=== PATIENT | female | born 1995 | race Caucasian/White ===

== ENCOUNTER 2019-09-14 17:25 | Emergency (ER) | payer OTHER, SELFPAY ==
[2019-09-14 17:35] VITALS: BP 120/73; PULSE 74; RESP 16; TEMP 37.1; O2SAT 97
--- NOTE | 2019-09-14 17:42 | ED.GENADULT ---
HPI - General Adult General Chief complaint: Skin/Abscess/Foreign Body Stated complaint: swelling in hands/finger, Ankle/feet swelling Time Seen by Provider: 09/14/19 17:42 Source: patient Mode of arrival: ambulatory Limitations: no limitations History of Present Illness HPI narrative: 24-year-old woman comes in today complaining of intermittent swelling of her hands and feet over the last month or 2. Patient states that they are often sore. Her mother has told her that she has had ordered looking skin at times. She denies shortness of breath, chest pain, cough, history of heart disease, nausea, vomiting or past hepatic or kidney disease. She has a remote history of IV drug use. Patient states she has also had right thumb pain and swelling that started today. She states that she often bites her fingernails. She put her finger in some hydrogen peroxide and her skin turned white. She denies any fever, red streaks or chills. Onset (ago): month(s) (1-2) Location: right and upper extremity Radiation: non-radiation Severity: moderate Quality: sharp ( And throbbing) Pain Consistency: constant Relieving factors: none Exacerbating factors: other ( palpation) Related Data Allergies Allergy/AdvReac Type Severity Reaction Status Date / Time No Known Allergies Allergy Unverified 07/19/18 18:49 Review of Systems Constitutional: Constitutional: Denies chills, Denies fatigue, Denies fever(s) and Denies weakness Eyes: Eyes: Denies change in vision and Denies photophobia ENT: Denies dysphagia, Denies nasal congestion and Denies sore throat Cardiovascular: Cardiovascular: Denies chest pain and Denies radiating jaw, neck or arm pain Respiratory: Respiratory: Denies cough, Denies dyspnea and Denies wheezing Gastrointestinal: Gastrointestinal: Denies abdominal pain, Denies diarrhea, Denies nausea and Denies vomiting Genitourinary: Genitourinary: Denies nocturia and Denies dysuria Musculoskeletal: Musculoskeletal: Denies back pain, Denies arthralgias and Denies joint swelling Integumentary/Breasts: Skin/Breast: Denies pruritus, Denies erythema and Denies rash Neurologic: Denies vertigo, Denies dizziness and Denies syncope Psychiatric: Psychiatric: Denies anxiety and Denies depression Endocrine: Endocrine: Denies polydipsia and Denies polyuria Comments: no heat or cold intolerance Hematologic/Lymphatic: Hematologic/Lymphatic: Denies easy bleeding and Denies easy bruising Allergic/Immunologic: Allergic/Immunologic: Denies lip swelling and Denies wheezing PMFSH Past Medical History Medical History (Updated 09/14/19 @ 18:36 by Malik Copeland MD) Hypertension Surgical History Surgical History (Updated 09/14/19 @ 17:56 by Malik Copeland MD) Hx of neck surgery S/P tonsillectomy and adenoidectomy Social History Social History (Updated 09/14/19 @ 17:56 by Malik Copeland MD) Smoking status: Current every day smoker Substance use: former Substance use type: IV drugs Living arrangements: with family Gender identity (if verbalized by the patient): Male Exam Const: General: healthy appearing and alert Nutritional Appearance: well nourished Orientation/consciousness: patient oriented x3 Other: mild acute distress HENMT: Ears: external ears normal, TM's normal bilaterally and EAC's normal Mouth: Yes Normal oral and palatal mucosa present and Yes dry mucous membranes Throat: posterior oropharynx normal and uvula midline Eyes: Conjunctivae: conjunctivae normal Pupils: Equal, round and reactive pupils present EOM: EOMs intact bilaterally Other: no icterus Neck: Neck: normal visual inspection and no lymphadenopathy Resp: Effort & Inspection: normal respiratory effort and not labored Auscultation: clear to auscultation bilaterally, rales, rhonchi and wheezes Cardio: Rate: regular rate Rhythm: regular rhythm Heart sounds: no murmurs GI: GI Palp: Yes Soft to palpation, No Tenderness to palpa
[2019-09-14 17:56] VITALS: BP 120/73; PULSE 74; RESP 16; TEMP 37.1; O2SAT 94
[2019-09-14 18:04] LABS: Basophils Absolute Auto 0.03 K/mm3 (0.00-0.10); Basophils Percent Auto 0.4 % (0.0-1.0); Eosinophils Absolute Auto 0.23 K/mm3 (0.02-0.50); Eosinophils Percent Auto 2.8 % (1.0-6.0); Hematocrit 40.6 % (35.0-49.0); Hemoglobin 13.4 g/dL (12.0-15.0); Immature Granulocyte Absolute 0.01 K/mm3 (0.00-0.00); Immature Granulocyte Percent A 0.1 % (0.0-0.0); Lymphocytes Absolute Auto 2.14 K/mm3 (1.10-4.50); Lymphocytes Percent Auto 25.9 % (18.0-42.0); Mean Corpuscular Hemoglobin 31.6 pg (27.0-31.0); Mean Corpuscular Volume 95.8 fL (78.0-102.0); Monocytes Percent Auto 7.3 % (2.0-11.0); Neutrophils Absolute Auto 5.3 K/mm3 (1.7-7.2); Neutrophils Percent Auto 63.5 % (50.0-70.0); Platelet Count Result 257 K/mm3 (150-420); Red Blood Count 4.24 M/mm3 (4.20-5.40); Red Cell Distribution Width 12.2 % (11.6-14.4); White Blood Count 8.3 K/mm3 (4.8-10.8)
[2019-09-14 18:20] LABS: Add Urine Microscopic? YES; Appearance Urine Clear (Clear); Bilirubin Urine Negative (Negative); Blood Urine Negative (Negative); Color Urine Yellow (Yellow); Glucose Urine UA Negative (Negative); Ketones Urine Negative (Negative); Leukocyte Esterase Ur 1+ (Negative); Nitrate Urine Negative (Negative); Protein Urine Negative (Negative); Specific Grav Ur 1.025 (1.010-1.020)
[2019-09-14 18:25] LABS: Bacteria Urine 1+ /hpf; Squamous Epithelial Cell Urine Moderate /hpf (Few); Urine Pregnancy Test Negative
[2019-09-14 18:26] LABS: Pregnancy On Board Control POS; Specific Gravity Ur 1.025 (1.010-1.035)
[2019-09-14 18:30] LABS: Alanine Aminotransferase 32 U/L (14-59); Albumin Level 3.5 g/dL (3.4-5.0); Alkaline Phosphatase 81 U/L (46-116); Anion Gap 11.7 mmol/L (7-16); Aspartate Amino Transferase 24 U/L (15-37); Bilirubin,Total 0.4 mg/dL (0.00-1.00); Blood Urea Nitrogen 13 mg/dL (7-18); Calcium 8.9 mg/dL (8.5-10.1); Carbon Dioxide 30 mmol/L (21-32); Chloride 102 mmol/L (98-108); Estimated CRCL calculation 98 ml/min; Estimated Glomerular Filt Rate > 60; GGT 11 U/L (5-55); Glucose 69 mg/dL (70-99); Osmolality Calculated 288 mOsm/kg (285-295); Potassium 3.7 mmol/L (3.5-5.1); Sodium 140 mmol/L (136-145); Thyroid Stimulating Hormone Reflex 1.28 u/IU/mL (0.36-3.74); Total Protein 6.8 g/dL (6.4-8.2)
[2019-09-14 18:39] VITALS: BP 120/80; PULSE 80; RESP 20; O2SAT 100
== END 2019-09-14 18:42 | disposition home or self-care (01) ==
PROVIDERS: Emergency Provider Emergency Medicine
DX: L03.011 Cellulitis of right finger (principal); N39.0 Urinary tract infection, site not specified; R60.9 Edema, unspecified
CPT/HCPCS: 36415; 80053; 81001; 81025; 82977; 84443; 85025; 99283

== ENCOUNTER 2019-09-18 14:42 | Emergency (ER) | payer OTHER, SELFPAY ==
[2019-09-18 16:13] VITALS: BP 134/91; PULSE 108; RESP 18; TEMP 36.5; O2SAT 98
--- NOTE | 2019-09-18 16:26 | ED.UPPEXIN ---
HPI - Extremity Injury (Upper) General Chief Complaint: Extremity Injury, Upper Stated Complaint: rt thumb injury Source: patient Mode of arrival: ambulatory Limitations: no limitations History of Present Illness HPI narrative: This is a 24-year-old female presents with right thumb swelling redness and pain started approximately more than a week ago was seen in the emergency department approximately 5 to 6 days ago started on antibiotics and currently there is some increasing inflammation swelling redness of her right thumb no tracking of the redness there is no fever or chills no known injury to the right thumb. complaint: injury to: right and finger Onset (ago): day(s) Other injuries: none Handedness: right Place: home Severity: moderate Severity scale (1-10): 7 Relieving factors: medication Related Data Allergies Allergy/AdvReac Type Severity Reaction Status Date / Time No Known Allergies Allergy Unverified 07/19/18 18:49 Review of Systems Review of Systems: All systems reviewed & are unremarkable except as noted in HPI and below PMFSH Past Medical History Medical History Hypertension Surgical History Surgical History Hx of neck surgery S/P tonsillectomy and adenoidectomy Social History Social History Smoking status: Current every day smoker Substance use: former Substance use type: IV drugs Gender identity (if verbalized by the patient): Male Exam Const: General: no acute distress and alert Nutritional Appearance: well nourished Orientation/consciousness: patient oriented x3 HENMT: Head: normal to inspection Eyes: Conjunctivae: conjunctivae normal Pupils: Equal, round and reactive pupils present Neck: Neck: normal visual inspection Lymphatic: no lymphadenopathy noted Chest: Chest palpation & inspection: normal inspection of the chest Resp: Effort & Inspection: normal respiratory effort Auscultation: clear to auscultation bilaterally Cardio: Rate: regular rate Rhythm: regular rhythm GI: GI Palp: Yes Soft to palpation Skin: General skin exam: normal color Rashes: no rashes Wounds: wounds noted ( Swollen right thumb with tenderness around the nail bed with redness.) Course Vital Signs Vital signs: Vital Signs Temperature 36.5 C 09/18/19 16:13 Pulse Rate 108 H 09/18/19 16:13 Respiratory Rate 18 09/18/19 16:13 Blood Pressure 134/91 H 09/18/19 16:13 Pulse Oximetry 98 09/18/19 16:13 Temperature 36.5 C 09/18/19 16:13 Pulse Rate 108 H 09/18/19 16:13 Respiratory Rate 18 09/18/19 16:13 Blood Pressure 134/91 H 09/18/19 16:13 Pulse Oximetry 98 09/18/19 16:13 Critical Care Time Critical Care Time Critical Care Time: No Discharge Plan Discharge Clinical Impression: Paronychia Cellulitis Qualifiers: Site of cellulitis: extremity Site of cellulitis of extremity: finger Laterality: right Qualified Code(s): L03.011 - Cellulitis of right finger Patient Disposition: Home, Self-Care Condition: Stable Instructions: Antibiotic Form Additional Instructions: Follow-up with primary care physician within 1 week for further evaluation and treatment. Take medicine as prescribed. Prescriptions: New amoxicillin-pot clavulanate [Augmentin] 875-125 mg tablet 1 tablet PO Q12H Qty: 20 RF: 0 naproxen 500 mg tablet 500 mg PO BID Qty: 14 RF: 0 No Action sulfamethoxazole-trimethoprim [Bactrim DS] 800-160 mg tablet 1 tablet PO Q12H Qty: 7 RF: 0 acetaminophen-codeine [Tylenol-Codeine #3] 300-30 mg tablet 1 tablet PO Q6H PRN (Reason: pain) Qty: 10 RF: 0 Follow-up/Referrals: UNKNOWN,DOCTOR [Primary Care Provider] - Time of Disposition: 16:30
[2019-09-18] MEDS: KETOROLAC (*BKC) 60 MG/2 ML VIAL IM (16:33)
[2019-09-18 16:43] VITALS: BP 135/95; PULSE 101; RESP 18; O2SAT 99
== END 2019-09-18 16:49 | disposition home or self-care (01) ==
PROVIDERS: Emergency Provider Emergency Medicine
DX: L03.011 Cellulitis of right finger (principal)
CPT/HCPCS: 96372; 99283; J1885

== ENCOUNTER 2020-10-20 00:20 | Emergency (ER) | payer OTHER, SELFPAY ==
[2020-10-20 00:20] VITALS: PULSE 80; RESP 20; TEMP 36.6; O2SAT 100
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
[2020-10-20 00:57] LABS: Basophils Absolute Auto 0.06 K/mm3 (0.00-0.10); Basophils Percent Auto 0.4 % (0.0-1.0); Eosinophils Absolute Auto 0.09 K/mm3 (0.02-0.50); Eosinophils Percent Auto 0.7 % (1.0-6.0); Hematocrit 36.5 % (35.0-49.0); Hemoglobin 12.6 g/dL (12.0-15.0); Immature Granulocyte Absolute 0.04 K/mm3 (0.00-0.00); Immature Granulocyte Percent A 0.3 % (0.0-0.0); Lymphocytes Absolute Auto 2.73 K/mm3 (1.10-4.50); Lymphocytes Percent Auto 19.9 % (18.0-42.0); Mean Corpuscular HGB Conc 34.5 g/dL (32.0-36.0); Mean Corpuscular Hemoglobin 32.1 pg (27.0-31.0); Mean Corpuscular Volume 92.9 fL (78.0-102.0); Mean Platelet Volume 9.9 fl (9.2-11.8); Monocytes Absolute Auto 1.27 K/mm3 (0.10-0.90); Monocytes Percent Auto 9.3 % (2.0-11.0); Neutrophils Absolute Auto 9.5 K/mm3 (1.7-7.2); Neutrophils Percent Auto 69.4 % (50.0-70.0); Platelet Count Result 335 K/mm3 (150-420); Red Blood Count 3.93 M/mm3 (4.20-5.40); Red Cell Distribution Width 12.8 % (11.6-14.4); White Blood Count 13.7 K/mm3 (4.8-10.8)
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
[2020-10-20 00:59] LABS: Add Urine Microscopic? YES; Bilirubin Urine Negative (Negative); Blood Urine Negative (Negative); Color Urine Yellow (Yellow); Glucose Urine UA Negative (Negative); Ketones Urine Negative (Negative); Leukocyte Esterase Ur Negative LEU/UL (Negative); Nitrate Urine Negative (Negative); Protein Urine Trace (Negative); Specific Grav Ur >= 1.030 (1.010-1.020)
[2020-10-20 01:02] LABS: Pregnancy On Board Control Positive; Urine Pregnancy Test Negative
[2020-10-20 01:03] LABS: Bacteria Urine 1+ /hpf; Mucus Urine Moderate /lpf; RBC Urine 0-2 /hpf (0-2); Squamous Epithelial Cell Urine Few /hpf (Few)
[2020-10-20 01:04] LABS: Appearance Urine Cloudy (Clear)
[2020-10-20 01:08] LABS: Salicylate 6.2 mg/dL (2.8-20.0)
[2020-10-20 01:09] LABS: Amphetamine Screen Urine Positive (Negative); Barbiturate Screen Urine Negative (Negative); Benzodiazepines Screen Urine Negative (Negative); Cannabinoid Screen Urine Positive (Negative); Cocaine Screen Urine Negative (Negative); Methadone Screen Urine Negative (Negative); Opiate Screen Urine Negative (Negative); Phencyclidine Screen Urine Negative (Negative)
[2020-10-20 01:09] LABS: Acetaminophen < 2 ug/mL (10-30); Ethanol < 3 mg/dL (0-6)
[2020-10-20 01:10] VITALS: BP 120/94; PULSE 95; RESP 20; O2SAT 99
[2020-10-20 01:24] LABS: Alanine Aminotransferase 40 U/L (14-59); Albumin Level 3.9 g/dL (3.4-5.0); Alkaline Phosphatase 86 U/L (46-116); Anion Gap 14 mmol/L (8-16); Aspartate Amino Transferase 32 U/L (15-37); Bilirubin,Total 0.5 mg/dL (0.00-1.00); Blood Urea Nitrogen 13 mg/dL (7-18); Calcium 9.1 mg/dL (8.5-10.1); Carbon Dioxide 23 mmol/L (21-32); Chloride 104 mmol/L (98-108); Estimated CRCL calculation 64 ml/min; Estimated Glomerular Filt Rate > 60; Glucose 111 mg/dL (70-99); Osmolality Calculated 293 mOsm/kg (285-295); Potassium 3.4 mmol/L (3.5-5.1); Sodium 141 mmol/L (136-145); Thyroid Stimulating Hormone 1.27 uIU/mL (0.36-3.74); Total Protein 7.5 g/dL (6.4-8.2)
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
--- NOTE | 2020-10-20 01:50 | PC.NURSE ---
Pt. is sitting upright in bed c x2 soft restraints on upper limbs, staring out window and talking to self. Pt. not trying to fight restraints at this time.
[2020-10-20 02:18] LABS: SARS-CoV-2 RNA PCR Negative (Negative)
[2020-10-20] MEDS: NICOTINE (*PBKC) 14 MG PATCH 1 PATCH TRANSDERM (04:03)
--- NOTE | 2020-10-20 04:20 | PC.NURSE ---
Pt. is agitated and hostile c staff, wanting to sign herself out and stating she isn't going to a mental hospital. ERP in to speak c pt. and pt more agitated. Explained to pt. that if she won't cooperate the other restraint will go back on. Pts. father at bedside, sitter by door. Pt. encouraged to lie down and rest.
--- NOTE | 2020-10-20 04:39 | PC.NURSE ---
Pt is more agitated and unable to be redirected threatning that she is going to kill all of us. PD called for assistance so pt. can be placed back in restraint.
--- NOTE | 2020-10-20 04:47 | PC.NURSE ---
[place] [employer] officer here, dad asked to leave room due to pt. argumentative and more verbally abusive c him in room. Pt. then placed back in 2nd wrist restraint c help of officer. Pt. more cooperative c PD here.
[2020-10-20] MEDS: LORazepam INJ (*CRX) 2 MG/ML VIAL IM (05:16)
--- NOTE | 2020-10-20 05:17 | PC.NURSE ---
This RN and tech in room c pt. Pt. assisted to BSC and restraints left off at this time. Pt. cleaned herself c wipes and deodorant given. Pt. sitting bedside p using commode and sipping on soda. Pt. allowed this RN to give her an injection that she wanted to help calm her nerves.
[2020-10-20] MEDS: POTASSIUM CHLORIDE 20 MEQ TABLET 40 MEQ PO (05:24)
--- NOTE | 2020-10-20 06:13 | PC.NURSE ---
Pt. moved to ER hold psychiatric room c camera on for close obs and sitter at bedside. Pt. informed that since she can't/won't stay in room and is attempting to leave that she will be placed in a secluded room under constant surveillance. Pt having vivid hallucinations and talking to her mother who isn't in room. Camera on in room, pt sitting bedside and looking out door window, talking to self.
--- NOTE | 2020-10-20 07:10 | PC.NURSE ---
Report given to Celeste Bustos. Pt. still in room, standing at door looking out and won't stay in bed. Pt. continues to be watched on monitor and is under close observation.
[2020-10-20] MEDS: HALOPERIDOL LACTATE 5 MG/ML VIAL IM (07:23)
--- NOTE | 2020-10-20 07:33 | PC.NURSE ---
REPORT RECEIVED FROM PREVIOUS NURSE STATING PATIENT HAS NOT BEEN TO SLEEP AND IS SPEAKING OF [facility] TRYING TO GET HER VERBAL ORDER RECEIVED FOR ANTI-PSYCHOTIC - [facility] WILL NOT TAKE PATIENT DUE TO HER SEVERITY OF PSYCHOSIS SITTER AT DOOR, NO BELONGINGS IN ROOM. PT IS CALM AND COOPERATIVE AT THIS TIME
[2020-10-20 09:46] VITALS: BP 109/63; PULSE 68; RESP 14; TEMP 36.4; O2SAT 100
--- NOTE | 2020-10-20 09:56 | PC.NURSE ---
PT IS MOVED TO ROOM 206 FOR ERHOLD REQUESTED BY DR JAZIEL MONIQUE FROM [facility] STATES NO BEDS AVAILABLE AT THIS TIME - PT IS SLEEPING BUT EASILY AROUSABLE , DENIES ANY REQUESTS AT THIS TIME
--- NOTE | 2020-10-20 10:10 | PC.NURSE ---
1000 here from er as a hold. arouses with name being called. will not answer questions, just look blankly at staff. lying quietly at this time. sitter at bedside.
[2020-10-20 10:16] VITALS: BP 130/86; PULSE 80; RESP 18; O2SAT 98
--- NOTE | 2020-10-20 10:45 | PC.NURSE ---
cont to sleep quietly at this time.
--- NOTE | 2020-10-20 14:03 | PC.NURSE ---
cont to sleep. rolls over once in a while. barber norton
--- NOTE | 2020-10-20 17:00 | PC.NURSE ---
cont to sleep. dries to with drawl from touch and name called. eyes flicker open briefly and shut. groans and tries to bury head if you cont to stimuli patient. vs stable. cont to monitor. barber norton
[2020-10-20 17:03] VITALS: BP 128/88; PULSE 80; RESP 18; TEMP 37.1; O2SAT 97
--- NOTE | 2020-10-20 18:39 | PC.NURSE ---
cont to sleep. pulls away and buries head if attempted to wake.
--- NOTE | 2020-10-20 19:24 | PC.NURSE ---
Patient up to toilet independently. Had supper tray. Ate 25%. Difficult to get to answer questions. Sleeping again.
--- NOTE | 2020-10-20 23:59 | PC.NURSE ---
Patient resting. Alert and oriented x3. No aggression or self harm threats or attempts. Fluids provided.
[2020-10-21 00:03] VITALS: BP 144/84; PULSE 86; RESP 14; TEMP 36.4; O2SAT 99
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
[2020-10-21 08:05] VITALS: BP 130/94; PULSE 76; RESP 20; TEMP 36.6; O2SAT 98
--- NOTE | 2020-10-21 08:05 | PC.NURSE ---
sleeping this am. quiet. will only answer yes/no. i am thirsty. up ad patsy in room to br.
--- NOTE | 2020-10-21 09:48 | PC.NURSE ---
[facility] CALLED FOR RE-EVALUATION
[2020-10-21] MEDS: NICOTINE (*PBKC) 14 MG PATCH 1 PATCH TRANSDERM (10:10)
--- NOTE | 2020-10-21 10:16 | PC.NURSE ---
KAYDEN WITH [facility] CALLS BACK AND DECLINES REQUEST TO RE-EVALUATE PATIENT ERP FEELS THAT SHE IS NO LONGER A RISK SINCE SHE IS SOBER. K[facility] ALSO STATES THAT THERE NEEDS TO BE NEW FORMS AND CERTIFICATES FILLED OUT THAT WE CAN GOOGLE AND PRINT OFF. I INFORMED JORGE THERESA HULL INSPECTOR THAT ERP AGAIN REQUESTS PT BE RE-EVALUATED AND WE ARE NOT COMFORTABLE WITH FILLING OUT AN INVOLUNTARY CERTIFICATE FOUND ON GOOGLE AGAINST DR MILLAN ADVICE.
--- NOTE | 2020-10-21 10:55 | PC.NURSE ---
family at bedside. up ad patsy in room. barber norton
--- NOTE | 2020-10-21 11:05 | PC.NURSE ---
ERP RETURNS TO ER AFTER ROUNDS, HAS DECLARED PATIENT NOT TO BE HOMICIDAL OR SUICIDAL AND SO NO LONGER NEEDS A SITTER AT THE BEDSIDE. [facility] SENIOR FIELD ENGINEER STATES A SENIOR FIELD ENGINEER AND FAMILY MEMBER WILL BE UP TO SIGN NEW CERTIFICATES AND POSSIBLY RE-EVALUATE.
--- NOTE | 2020-10-21 11:05 | PM.EVENT ---
Event Note Event Note Event Note: saw patient earlier this morning and the patient was evaluated and she did not remember the events proceeding to her being sent to the hospital and subsequent ER hold, after talking to the patient she is awake alert and she conveyed to me that she is not suicidal and currently not homicidal and did not remember the events leading to her ER visit. Apparently her father is here visiting and wants to sign her out him take her to [facility] to be evaluated. Mental health was here the previous night and she is currently involuntary and there are no beds for violent homicidal behavior. Called mental health to come and re-evaluate because the patient was on methamphetamines and currently she is lucid awake alert and wanted mental health come and re-evaluate her current status.
--- NOTE | 2020-10-21 11:05 | PC.NURSE ---
erp awareof father wanting her to be dc to him, so he can take her personally to [facility]. phone call to mental health after hours. waiting for call back. barber andre
--- NOTE | 2020-10-21 11:33 | PC.NURSE ---
1115 talked with makeda at [facility]. explained the father is wanting her dc and for him to take her to [facility]. makeda claims he thinks she still needs to be committed but if you guys think she is not then we can dc her. explained that we go on their recommendations and that this nurse feels she needs to be re-evaluated. makeda claims he has spent the morning on phone with father. claims they were to meet at local [facility] or his house to sign papers and decide what care is needed. claims the father wanted to come here to see her first and has called him talked that he was willing to take her to [facility]. asked mental health worker when he was coming, he claims he is not since the father was already there and he needed a private area to discuss care. explained we have several private areas he can go with father to talk. at this makeda claims he is on his way. family aware. patient rests quietly in bed. barber norton
--- NOTE | 2020-10-21 12:17 | PC.NURSE ---
1205 erp aware of makeda's request for new labs to be repeated. makeda claims there is no way to her into [facility] as a female due to no beds yesterday or today. and that makeda is on his way. barber norton 1210 patient rests with eyes closed. father remains at bedside. barber norton 1220 father claims makeda is on the outside of building and he will go out and meet with him. lunch served to patient. sits up in bed and eats. voices no c/o. barber norton
--- NOTE | 2020-10-21 13:03 | PC.NURSE ---
makeda talked with parents. has a signed petition for involuntary admission paper, that he claims is good for 72 hours. ate lunch and now lays down.
--- NOTE | 2020-10-21 13:43 | PC.NURSE ---
[facility] calls and claims they have a bed and need to talk to her personally. phone call transferred to her and she now sits in bed rocking and talking on phone.
[2020-10-21] MEDS: LORazepam (*CRX) 1 MG TABLET PO (13:55)
--- NOTE | 2020-10-21 14:04 | PC.NURSE ---
talks with marques for short amount of time. c/o feeling nervous and needs something for nerves NOW. up ad patsy in room. nibbles on lunch. does not want it taken away.does not want to talk. picks and chooses when to answer you. barber norton
--- NOTE | 2020-10-21 14:59 | PC.NURSE ---
LISA, MENTAL HEALTH SPD MANAGER AT [facility] [place] CALLS THIS FACILITY BACK AFTER SPEAKING TO PSYCHIATRIST. DR JUAREZ STATES THAT THIS PATIENT DOES NOT QUALIFY FOR MENTAL HEALTH EVALUATION AT A MENTAL HEALTH INPATIENT FACILITY THIS IS METH-AMPHETAMINE INDUCED BEHAVIOR. DR MILLAN AWARE OF CHANGE OF STATUS.
--- NOTE | 2020-10-21 15:02 | PC.NURSE ---
[address] [facility] psychiatric coordinator tito contacted. update provided on patients lowered acuity and improved condition. tito states there are beds available and requested updated chart be faxed to her so that the patient can be considered to psychiatric treatment at [facility] facility. chart faxed. awaiting call back.
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
[2020-10-21 15:30] VITALS: BP 148/112; PULSE 94; RESP 18; O2SAT 97
--- NOTE | 2020-10-21 15:31 | PC.NURSE ---
1525 up ad patsy in room. er nurse here and talks with patient and goes over dc instructions. vocalizes an understanding to her. dresses self. wants to call father but attempted to explain i needed to call out because phones in pt room only call local and will transfer it to her. Does not to give phone number. leaves with er nurse at this time.
== END 2020-10-21 15:30 | disposition home or self-care (01) ==
LOC: CHSED 07:23 → CHS2ND 09:49
PROVIDERS: Emergency Medicine; Emergency Provider Emergency Medicine
DX: F23 Brief psychotic disorder (principal); R45.1 Restlessness and agitation; F15.90 Other stimulant use, unspecified, uncomplicated; Z20.822 Contact with and (suspected) exposure to COVID-19
CPT/HCPCS: 36415; 80053; 80307; 81001; 81025; 84443; 85025; 96372; 99284; A9270; C9803; J1630; J2060; U0003; U0005

== ENCOUNTER 2022-07-10 16:20 | Emergency (ER) | payer OTHER, SELFPAY ==
--- NOTE | ~2022-07-10 | CT_ITS ---
EXAMINATION: CTA chest PE protocol DATE: 07/10/2022 18:37 BAG PATCHER INDICATION: Elevated d-dimer. TECHNIQUE: Computed tomographic angiography (CTA) of the chest was performed with 100 mL Omnipaque-35 0 intravenous contrast. The dose-length product was 208.53 mGy-cm. Maximum intensity projection 3D-re constructions of the aorta and other arteries were constructed by the technologist on a separate work station. Automated exposure control and iterative reconstruction technique were employed. COMPARISON: None. FINDINGS: Heart size is normal. No thoracic lymphadenopathy. Study is technically adequate without ev idence for pulmonary embolism. No significant pleural or pericardial effusion. The upper abdomen is u nremarkable. No endobronchial lesions. No significant soft tissue abnormality. There is lingular atel ectasis/scarring. There is dependent atelectasis. No pneumothorax. No endobronchial lesions. IMPRESSION: 1. No evidence for pulmonary embolism. 2: Lingular atelectasis. Reviewed, dictated and finalized at location A. PATCHER
[2022-07-10 16:20] VITALS: BP 142/107; PULSE 91; RESP 18; TEMP 36.6; O2SAT 100
--- NOTE | 2022-07-10 16:39 | ECG_ITS ---
Measurements Intervals [place] Rate: 77 P: 40 WV: 139 QRS: 20 QRSD: 93 T: 49 QT: 382 QTc: 434 Interpretive Statements SINUS RHYTHM NO PREVIOUS ECG AVAILABLE FOR COMPARISON Electronically Signed On 07-10-2022 20:15:56 CAKE KNOCKER by Tabitha Avila M.D.
[2022-07-10] MEDS: KETOROLAC (*BKC) 60 MG/2 ML VIAL IM (16:56)
[2022-07-10 17:20] VITALS: BP 147/109; PULSE 80; RESP 18; O2SAT 99
[2022-07-10 17:29] LABS: Basophils Absolute Auto 0.04 K/mm3 (0.00-0.10); Basophils Percent Auto 0.5 % (0.0-1.0); Eosinophils Absolute Auto 0.33 K/mm3 (0.02-0.50); Eosinophils Percent Auto 4.4 % (1.0-6.0); Hematocrit 37.2 % (35.0-49.0); Hemoglobin 12.8 g/dL (12.0-15.0); Immature Granulocyte Absolute 0.01 K/mm3 (0.00-0.00); Immature Granulocyte Percent A 0.1 % (0.0-0.0); Lymphocytes Absolute Auto 2.33 K/mm3 (1.10-4.50); Lymphocytes Percent Auto 31.2 % (18.0-42.0); Mean Corpuscular HGB Conc 34.4 g/dL (32.0-36.0); Mean Corpuscular Hemoglobin 31.1 pg (27.0-31.0); Mean Corpuscular Volume 90.3 fL (78.0-102.0); Mean Platelet Volume 9.8 fl (9.2-11.8); Monocytes Absolute Auto 0.47 K/mm3 (0.10-0.90); Monocytes Percent Auto 6.3 % (2.0-11.0); Neutrophils Absolute Auto 4.3 K/mm3 (1.7-7.2); Neutrophils Percent Auto 57.5 % (50.0-70.0); Platelet Count Result 254 K/mm3 (150-420); Red Blood Count 4.12 M/mm3 (4.20-5.40); Red Cell Distribution Width 11.9 % (11.6-14.4); White Blood Count 7.5 K/mm3 (4.8-10.8)
[2022-07-10 17:50] LABS: Alanine Aminotransferase 31 U/L (14-59); Albumin Level 3.7 g/dL (3.4-5.0); Alkaline Phosphatase 96 U/L (46-116); Anion Gap 7 mmol/L (8-16); Aspartate Amino Transferase 21 U/L (15-37); Bilirubin,Total 0.3 mg/dL (0.00-1.00); Blood Urea Nitrogen 11 mg/dL (7-18); Calcium 8.5 mg/dL (8.5-10.1); Carbon Dioxide 28 mmol/L (21-32); Chloride 102 mmol/L (98-108); Estimated CRCL calculation 93 ml/min; Estimated Glomerular Filt Rate > 60; Glucose 83 mg/dL (70-99); Osmolality Calculated 282 mOsm/kg (285-295); Potassium 3.5 mmol/L (3.5-5.1); Sodium 137 mmol/L (136-145); Total Protein 7.8 g/dL (6.4-8.2)
[2022-07-10 17:52] LABS: Troponin I < 4.0 ng/L (0.00-60.4)
[2022-07-10 17:54] LABS: D Dimer 1.15 mg/L (0.19-0.50)
[2022-07-10 18:03] LABS: Pregnancy On Board Control Positive; Urine Pregnancy Test Negative
[2022-07-10 18:20] VITALS: BP 157/115; PULSE 90; RESP 18; O2SAT 99
[2022-07-10] MEDS: ALPRAZolam (*CRX) 0.5 MG TABLET PO (18:33)
--- NOTE | 2022-07-10 18:42 | PC.NURSE ---
End of shift report given to Isadora.
--- NOTE | 2022-07-10 18:50 | ED.CHESTPAIN ---
HPI - Chest Pain General Chief Complaint: Chest Pain Stated Complaint: chest pain Time Seen by Provider: 07/10/22 16:36 Source: patient Mode of arrival: ambulatory Limitations: no limitations History of Present Illness HPI narrative: this is a 27-year-old female with no significant past medical history presents after she was sent from her primary but some chest discomfort reproducible on exam the sternum substernal area with no radiation no shortness of breath no fever chills no nausea vomiting no diaphoresis. complaint: chest discomfort Onset (ago): day(s) Timing of current episode: constant Prior episodes: No Onset: during rest Pain location: subxiphoid Pain radiation: none Severity: moderate Pain scale (0-10): 8 Quality: aching Related Data Allergies Allergy/AdvReac Type Severity Reaction Status Date / Time No Known Allergies Allergy Verified 07/10/22 16:37 Review of Systems Review of Systems: All systems reviewed & are unremarkable except as noted in HPI and below PMFSH Past Medical History Medical History (Updated 07/10/22 @ 18:58 by Vinh Mancilla MD) Hypertension Surgical History Surgical History Hx of neck surgery S/P tonsillectomy and adenoidectomy Social History Social History Smoking status: Current every day smoker Substance use: former Substance use type: unknown Living arrangements: with family Gender identity (if verbalized by the patient): Male Exam Const: General: healthy appearing and no acute distress Nutritional Appearance: well nourished Orientation/consciousness: patient oriented x3 Limitations: no limitations HENMT: Head: normal to inspection Face/Nose/Sinus: Normal external nose present Face and sinus: normal facial exam Mouth: Yes Normal oral and palatal mucosa present Teeth and gingiva: dentition normal Eyes: Conjunctivae: conjunctivae normal Pupils: Equal, round and reactive pupils present EOM: EOMs intact bilaterally Direct Ophthalmoscopy: no photophobia Neck: Neck: normal visual inspection and no lymphadenopathy Chest: Chest palpation & inspection: normal inspection of the chest Other: Midsternal reproducible chest pain with palpation Resp: Effort & Inspection: normal respiratory effort Auscultation: clear to auscultation bilaterally Cardio: Rate: regular rate Rhythm: regular rhythm GI: GI Palp: Yes Soft to palpation Auscultation: normal bowel sounds : General: Yes bladder normal to palpation Urinary Catheter: Urinary Catheter: patent and draining Skin: General skin exam: normal color Wounds: no wounds Neuro: General: patient oriented x3 Cranial nerves: Yes Nystagmus not present Speech: normal speech Gait exam (Neuro): Normal gait present Extrem: General: normal to inspection Psych: Mental Status: mental status grossly normal Affect: Anxious affect present Course Course Emergency Course: patient had an elevated D-dimer and CTA was performed which shows no pulmonary embolism the rest of her blood work was reviewed, patient does have a elevated blood pressure at 142/107, repeat blood pressure 140/94. Vital Signs Vital signs: Vital Signs Temperature 36.6 C 07/10/22 16:20 Pulse Rate 91 07/10/22 16:20 Respiratory Rate 18 07/10/22 16:20 Blood Pressure 142/107 H 07/10/22 16:20 Pulse Oximetry 100 07/10/22 16:20 Oxygen Delivery Room Air 07/10/22 16:20 Temperature 36.6 C 07/10/22 16:20 Pulse Rate 90 07/10/22 18:20 Respiratory Rate 18 07/10/22 18:20 Blood Pressure 157/115 H 07/10/22 18:20 Pulse Oximetry 99 07/10/22 18:20 Oxygen Delivery Room Air 07/10/22 18:20 MDM - Chest Pain Lab Data 07/10/22 16:56 07/10/22 16:56 Labs: Lab Results 07/10/22 07/10/22 07/10/22 Range/Units 16:56 16:56 16:56 WBC 7.5 (4.8-10.8) K/mm3 RBC 4.12 L
[2022-07-10 18:58] VITALS: BP 140/94; PULSE 80; RESP 20; O2SAT 96
[2022-07-10 19:02] VITALS: BP 140/90; PULSE 78; RESP 20; TEMP 37.2; O2SAT 96
== END 2022-07-10 19:07 | disposition home or self-care (01) ==
PROVIDERS: Emergency Provider Emergency Medicine
DX: M94.0 Chondrocostal junction syndrome [Tietze] (principal); I10 Essential (primary) hypertension; F17.210 Nicotine dependence, cigarettes, uncomplicated
CPT/HCPCS: 36415; 71275; 80053; 81025; 84484; 85025; 85380; 93005; 96372; 99284; A9270; J1885; Q9967

== ENCOUNTER 2022-09-13 09:49 | Emergency (ER) | payer OTHER, SELFPAY ==
[2022-09-13 09:49] VITALS: BP 142/90; PULSE 99; RESP 16; TEMP 36.5; O2SAT 100
--- NOTE | 2022-09-13 09:57 | ED.SKABFB ---
HPI - Skin/Abscess/Foreign Bdy General Chief complaint: Skin/Abscess/Foreign Body Stated complaint: cyst on neck, pain and swelling Time Seen by Provider: 09/13/22 09:57 Source: patient and RN notes reviewed Mode of arrival: ambulatory Limitations: no limitations History of Present Illness HPI narrative: Patient states that she had a branchial cleft cyst removed from her left neck many years ago. Two days ago began swelling in her left neck again and is very tender to palpation. Hurts when she turns her neck. Nothing makes it better. She did not try to call her surgeon. complaint: abscess/boil Onset (ago): day(s) (2) Location: neck Severity: similar to previous episodes Quality: aching, dull and constant Pain Consistency: constant Relieving factors: none Exacerbating factors: palpation Associated symptoms: denies other symptoms Treatments prior to arrival: none Related Data Home Medications Medication Instructions Recorded Confirmed No Home Medications 09/13/22 09/13/22 Allergies Allergy/AdvReac Type Severity Reaction Status Date / Time No Known Allergies Allergy Verified 07/10/22 16:37 Review of Systems Review of Systems: All systems reviewed & are unremarkable except as noted in HPI and below PMFSH Past Medical History Medical History (Updated 09/13/22 @ 10:02 by Chris Krause MD) Hypertension Surgical History Surgical History Hx of neck surgery S/P tonsillectomy and adenoidectomy Social History Social History Smoking status: Current every day smoker Substance use: former Substance use type: unknown Living arrangements: with family Gender identity (if verbalized by the patient): Male Exam Const: General: healthy appearing and no acute distress Nutritional Appearance: well nourished Orientation/consciousness: patient oriented x3 Limitations: no limitations Other: female tech in room during examination. HENMT: Head: normal to inspection Ears: external ears normal Face/Nose/Sinus: Normal external nose present Face and sinus: normal facial exam Mouth: Yes moist mucous membranes Eyes: Conjunctivae: conjunctivae normal Pupils: Equal, round and reactive pupils present EOM: EOMs intact bilaterally Neck: Other: Patient has approximately 3 cm very tender cyst on the left neck below the mandible. This is an area of a well-healed scar from previous surgery. There is slight increased warmth. No evidence of erythema. Appears soft with no significant fluctuation. Resp: Effort & Inspection: normal respiratory effort Auscultation: clear to auscultation bilaterally Cardio: Rate: regular rate Rhythm: regular rhythm GI: GI Palp: Yes Soft to palpation and Yes Tenderness to palpation present (GI) Auscultation: normal bowel sounds Back/Spine/Pelvis: Cervical Spine: cervical ROM normal Thoracic/Lumbar Spine: Thoracic/lumbar spine scar(s) Skin: General skin exam: normal color Rashes: no rashes Neuro: General: patient oriented x3, moves all extremities, no focal motor deficits and CN's II-XI intact bilaterally Speech: normal speech Gait exam (Neuro): Normal gait present Extrem: General: normal to inspection and no clubbing, cyanosis or edema Psych: Mental Status: mental status grossly normal Affect: normal affect Attitude: cooperative Course Vital Signs Vital signs: Vital Signs Temperature 36.5 C 09/13/22 09:49 Pulse Rate 99 09/13/22 09:49 Respiratory Rate 16 09/13/22 09:49 Blood Pressure 142/90 H 09/13/22 09:49 Pulse Oximetry 100 09/13/22 09:49 Oxygen Delivery Room Air 09/13/22 09:49 Temperature 36.5 C 09/13/22 09:49 Pulse Rate 99 09/13/22 09:49 Respiratory Rate 16 09/13/22 09:49 Blood Pressure 142/90 H 09/13/22 09:49 Pulse Oximetry 100 09/13/22 09:49 Oxygen Delivery Room Air 09/13/22 09:49 MDM - Skin/Abs
== END 2022-09-13 10:15 | disposition home or self-care (01) ==
PROVIDERS: Emergency Provider Emergency Medicine
DX: Q18.0 Sinus, fistula and cyst of branchial cleft (principal); I10 Essential (primary) hypertension; Z87.891 Personal history of nicotine dependence
CPT/HCPCS: 99281

== ENCOUNTER 2023-06-07 21:30 | Emergency (ER) | payer OTHER, SELFPAY ==
--- NOTE | ~2023-06-07 | XR_ITS ---
Portable chest x-ray Comparison: 07/19/2018 Clinical History: Chest pain Findings: Lungs are clear, without focal consolidation or pleural effusion. Cardiomediastinal silho uette is stable. Bones and soft tissues are unremarkable. Impression: Normal chest. Reviewed, dictated and finalized at [facility]. ENGINEER Impression: Normal chest.
[2023-06-07 21:30] VITALS: BP 149/92; PULSE 90; RESP 18; TEMP 37.1; O2SAT 100
[2023-06-07 21:44] LABS: Glucose Point of Care 113 mg/dl (65-105)
--- NOTE | 2023-06-07 22:04 | ECG_ITS ---
Measurements Intervals [place] Rate: 73 P: 51 [place]: 132 QRS: 63 QRSD: 97 T: 59 QT: 384 QTc: 426 Interpretive Statements SINUS RHYTHM BASELINE WANDER- AVR, AVL, AVF NORMAL ECG COMPARED TO ECG 07/10/2022 16:52:02 NO SIGNIFICANT CHANGES Electronically Signed On 06-08-2023 6:25:26 ARMHOLE RAISER LOCKSTITCH by Bala Bello D.O.
--- NOTE | 2023-06-07 22:10 | ED.GENADULT ---
HPI - General Adult General Chief complaint: Unspecified Stated complaint: Anxiety Time Seen by Provider: 06/07/23 21:37 Source: patient Mode of arrival: ambulatory Limitations: no limitations History of Present Illness HPI narrative: Patient is a 27 year old female with a significant PMH that presents today with withdrawal symptoms and chest pain, arrythmias. Patient admits to using phentenol, amphetamines but says she has not used them in the the last 3-4 days. She says she is NOT having withdrawal symptoms Although many symptoms definitely resemble withdrawal. She states she also feels like she is having a heart attack and feels like her chest is collapsing and feels arrhythmias as well. She says she has never felt like this before in the past. She denies any using any other substances. She is also a smoker. Onset (ago): day(s) Location: head and chest Radiation: abdomen and proximal Severity: moderate Severity scale (1-10): 5 Quality: aching and crushing Pain Consistency: constant Relieving factors: none Exacerbating factors: none Associated symptoms: denies other symptoms Treatments prior to arrival: none Related Data Allergies Allergy/AdvReac Type Severity Reaction Status Date / Time No Known Allergies Allergy Verified 06/07/23 21:36 Review of Systems Review of Systems: All systems reviewed & are unremarkable except as noted in HPI and below Constitutional: Constitutional: Reports no additional constitutional complaints Eyes: Eyes: Reports no additional eye complaints ENT: Reports as per HPI, Reports ear discharge, Reports headache(s) and Reports odynophagia Cardiovascular: Cardiovascular: Reports as per HPI, Reports chest pain, Reports chest pain at rest, Reports chest pain with activity, Reports rapid heart rate, Reports lightheadedness and Reports palpitations Respiratory: Respiratory: Reports pain on inspiration, Reports pain with cough and Reports dyspnea Gastrointestinal: Gastrointestinal: Reports no additional gastrointestinal complaints Genitourinary: Genitourinary: Reports no additional female genitourinary complaints Musculoskeletal: Musculoskeletal: Reports no additional musculoskeletal complaints Integumentary/Breasts: Skin/Breast: Reports system reviewed and no additional complaints, except as docu Neurologic: Reports system reviewed and no additional complaints, except as documented Psychiatric: Psychiatric: Reports no additional psychiatric complaints Endocrine: Endocrine: Reports no additional endocrine complaints Hematologic/Lymphatic: Hematologic/Lymphatic: Reports no additional hematologic/lymphatic complaints Allergic/Immunologic: Allergic/Immunologic: Reports no additional allergic/immunologic complaints PMFSH Past Medical History Medical History (Updated 06/08/23 @ 00:51 by Chapin Pyle MD) Hypertension Surgical History Surgical History Hx of neck surgery S/P tonsillectomy and adenoidectomy Social History Social History Smoking status: Current every day smoker Substance use: former Substance use type: unknown Living arrangements: with family Gender identity (if verbalized by the patient): Male Exam Const: General: cooperative, healthy appearing, intoxicated appearing, patient obtunded and poor hygiene Nutritional Appearance: average body habitus Orientation/consciousness: oriented to person HENMT: Head: normal to inspection Ears: hearing grossly normal bilaterally Face and sinus: normal facial exam Mouth: Yes Normal oral and palatal mucosa present Teeth and gingiva: dentition normal Throat: posterior oropharynx normal Eyes: General: appearance normal, both eyes and all related structures Visual Nettles: normal visual nettles by confrontation Alignment and Position: alignment normal Periorbital: periorbital findings normal Eyelids: eyelids no
[2023-06-07 22:14] LABS: Bilirubin Urine 2+ (Negative); Blood Urine Negative (Negative); Glucose Urine UA Negative (Negative); Ketones Urine Trace (Negative); Leukocyte Esterase Ur Trace (Negative); Nitrate Urine Negative (Negative); Protein Urine 1+ (Negative); Specific Grav Ur >= 1.030 (1.010-1.020)
[2023-06-07 22:17] LABS: Amphetamine Screen Urine Positive (Negative); Barbiturate Screen Urine Negative (Negative); Benzodiazepines Screen Urine Positive (Negative); Cannabinoid Screen Urine Negative (Negative); Cocaine Screen Urine Positive (Negative); Methadone Screen Urine Negative (Negative); Opiate Screen Urine Negative (Negative); Phencyclidine Screen Urine Negative (Negative)
[2023-06-07 22:20] LABS: Add Urine Microscopic? YES; Amorphous Sediment Urine Few; Appearance Urine Cloudy (Clear); Bacteria Urine 1+ /hpf; Color Urine Dark Yellow (Yellow); Mucus Urine Heavy /lpf; Squamous Epithelial Cell Urine Many /hpf (Few); WBC Urine 0-3 /hpf (0-3)
[2023-06-07 22:21] LABS: Pregnancy On Board Control Positive; Urine Pregnancy Test Negative
[2023-06-07] MEDS: ASPIRIN 81 MG CHEWABLE TABLET 324 MG PO (22:24)
[2023-06-07] MEDS: SODIUM CHLORIDE 0.9% IV 1,000 ML 999 ML IV CONT (22:26)
[2023-06-07] MEDS: LORazepam INJ (*CRX) 2 MG/ML VIAL 1 MG IV PUSH (22:28)
[2023-06-07] MEDS: ONDANSETRON INJ 4 MG/2 ML VIAL IV PUSH (22:28)
[2023-06-07 22:37] VITALS: BP 155/97; PULSE 81; RESP 17; O2SAT 96
[2023-06-07 22:47] LABS: SARS-CoV-2 RNA PCR Negative (Negative)
[2023-06-07 22:53] LABS: Influenza A QL RT-PCR Negative (Negative); Influenza B QL RT-PCR Negative (Negative); RSV RNA, RT-PCR Negative (Negative)
[2023-06-07 23:37] VITALS: BP 170/116; PULSE 75; RESP 20; TEMP 37.2; O2SAT 100
--- NOTE | 2023-06-07 23:55 | PC.NURSE ---
IV fluids infused. Warm blanket provided. Labs obtained from IV line and taken to lab. Pt voices no other needs at this time.
[2023-06-08 00:05] VITALS: BP 158/108; PULSE 82; RESP 20; O2SAT 99
[2023-06-08 00:13] LABS: Basophils Absolute Auto 0.02 K/mm3 (0.00-0.10); Basophils Percent Auto 0.2 % (0.0-1.0); Eosinophils Absolute Auto 0.01 K/mm3 (0.02-0.50); Eosinophils Percent Auto 0.1 % (1.0-6.0); Immature Granulocyte Absolute 0.03 K/mm3 (0.00-0.00); Immature Granulocyte Percent A 0.4 % (0.0-0.0); Lymphocytes Absolute Auto 3.08 K/mm3 (1.10-4.50); Mean Corpuscular HGB Conc 34.4 g/dL (32.0-36.0); Mean Corpuscular Hemoglobin 31.2 pg (27.0-31.0); Mean Corpuscular Volume 90.7 fL (78.0-102.0); Mean Platelet Volume 9.7 fl (9.2-11.8); Monocytes Absolute Auto 0.57 K/mm3 (0.10-0.90); Monocytes Percent Auto 6.9 % (2.0-11.0); Neutrophils Absolute Auto 4.6 K/mm3 (1.7-7.2); Neutrophils Percent Auto 55.4 % (50.0-70.0); Platelet Count Result 238 K/mm3 (150-420); Red Blood Count 3.53 M/mm3 (4.20-5.40); Red Cell Distribution Width 12.4 % (11.6-14.4); White Blood Count 8.3 K/mm3 (4.8-10.8)
[2023-06-08 00:26] LABS: Partial Thromboplastin Time 26.1 SEC (23.90-30.70); Prothrombin Time 11.4 Seconds (9.50-12.10)
[2023-06-08 00:43] LABS: Alanine Aminotransferase 24 U/L (14-59); Albumin Level 3.1 g/dL (3.4-5.0); Alkaline Phosphatase 51 U/L (46-116); Anion Gap 12 mmol/L (8-16); Aspartate Amino Transferase 12 U/L (15-37); Bilirubin,Total 0.5 mg/dL (0.00-1.00); Blood Urea Nitrogen 10 mg/dL (7-18); Calcium 7.4 mg/dL (8.5-10.1); Carbon Dioxide 25 mmol/L (21-32); Chloride 106 mmol/L (98-108); Estimated CRCL calculation 82 ml/min; Estimated Glomerular Filt Rate > 60; Glucose 94 mg/dL (70-99); Lipase 15 U/L (16-77); NT Pro B Type Natriuretic Pept 42 pg/mL (0-125); Osmolality Calculated 295 mOsm/kg (285-295); Potassium 2.8 mmol/L (3.5-5.1); Sodium 143 mmol/L (136-145); Total Protein 6.4 g/dL (6.4-8.2); Troponin I 16.7 ng/L (0.00-60.4)
[2023-06-08] MEDS: POTASSIUM CHLORIDE 20 MEQ ER TABLET 40 MEQ PO ×2 (00:54)
[2023-06-08 00:57] VITALS: BP 158/98; PULSE 76; RESP 16; TEMP 36.9; O2SAT 98
== END 2023-06-08 01:07 | disposition home or self-care (01) ==
PROVIDERS: Emergency Provider Family Medicine
DX: F41.9 Anxiety disorder, unspecified (principal); N31.9 Neuromuscular dysfunction of bladder, unspecified; E87.6 Hypokalemia; I10 Essential (primary) hypertension; F17.200 Nicotine dependence, unspecified, uncomplicated
CPT/HCPCS: 36415; 71045; 80053; 80307; 81001; 81025; 82948; 83690; 83880; 84484; 85025; 85610; 85730; 87637; 93005; 96361; 96374; 96375; 99284; A9270; J2060; J2405; J7030